=== PATIENT | male | born 1930 | race Caucasian/White ===

== ENCOUNTER 2017-05-24 07:21 | Observation (INO) ==
[2017-05-24] MEDS ORDERED: 0.9 % SODIUM CHLORIDE 1,000 ML IV ONE ×2 (07:41→09:10)
--- NOTE | 2017-05-24 07:54 | Emergency Department Note ---
Weakness HPI - General Chief complaint: Blood Pressure Problem Stated complaint: weakness, low bp Time Seen by Provider: 05/24/17 07:48 Source: patient, EMS Mode of arrival: EMS - History of Present Illness HPI Narrative: 86-year-old male who was at home trying to go to the bathroom using his walker when he had a weakness episode and legs collapsed and does not remember what happened said 2 previous weakness episodes in the past 2 weeks was diagnosed with a UTI on 05/21/2017 put on Macrobid at that time. He had a head CT and workup which were all negative. inventory specialist arrived his blood pressure was in the 80s and when they bolused him with fluids it has returned up to 110 systolically. Is alert and oriented in no acute distress he has no pain as had the episode of weakness that occurred. Appears to have normal muscular strength in the upper and lower extremities he is alert and cooperative and oriented. Lives at home with an elderly sister. Son is here at this time he has a DNR with comfort measures only ,antibiotics okayed. the four episodes there were no syncopy involved according to daughter. He just had the weakness. after the fluid bolus his bp is holding at 130's. He denies anyu s/sx, no chest pain or sob. he is alert and oriented with no neurologic abnormalities - Related Data Home Medications Medication Instructions Recorded Confirmed amlodipine 5 mg tablet 5 mg PO QDAY 10/30/16 12/02/16 pravastatin 40 mg tablet 40 mg PO QHS 10/30/16 12/02/16 psyllium husk PO QDAY 10/30/16 12/02/16 aspirin 81 mg tablet,delayed 81 mg PO QDAY 12/02/16 12/02/16 release cholecalciferol (vitamin D3) 5,000 10,000 unit PO QDAY 12/02/16 12/02/16 unit capsule glucosamine sulfate 500 mg tablet 500 mg PO BID 12/02/16 12/02/16 omega-3 fatty acids 1,000 mg 1,000 mg PO QDAY 12/02/16 12/02/16 capsule vitamin A-vitamin C-vit E-min 1 tab-cap PO QDAY 12/02/16 12/02/16 tablet Previous Rx's Medication Instructions Recorded zolpidem 5 mg tablet 5 mg PO HS PRN #30 tab 12/02/16 Nitrofurantoin Monohyd/M-Cryst 100 mg PO BID #14 cap 05/21/17 [Macrobid 100 mg Capsule] Allergies Allergy/AdvReac Type Severity Reaction Status Date / Time atorvastatin [From Lipitor] AdvReac Unknown myalgia Verified 05/24/17 07:27 Review of Systems All systems ED: reviewed and negative except as stated. Constitutional: Denies: fever, chills Eyes: Denies: eye pain ENT ED: Denies: ear pain Cardiovascular: Denies: chest pain Respiratory: Denies: cough Gastrointestinal: Denies: abdominal pain Genitourinary: Denies: dysuria, frequency, urgency Musculoskeletal: Denies: back pain Integumentary: Denies: rash Neurological: Reports: weakness. Denies: headache, numbness, paresthesias, confusion, abnormal gait Psychiatric: Reports: anxiety Endocrine: Reports: fatigue Hematological/Lymphatic: Reports: easy bleeding Allergic/Immunologic: Reports: facial swelling Past Medical History - Past Medical History Medical history: Reports: arthritis, cancer (Renal), hyperlipidemia, hypertension, kidney stones, renal disease, other (Sciatica, BPH, peripheral vascular disease, macular degeneration, peptic ulcer disease) Surgical history ED: Reports: orthopedic, other (Ankle), other (Left nephrectomy , aortic aneurysm) Family history: Reports: CAD/[place] (father), hypertension (mother father) - Social History smoking status: Former smoker Alcohol use: Reports: None Drug use: Reports: none Physical Exam Limitations: no limitations General appearance: alert Head: atraumatic Eye: Present: normal appearance, PERRL ENT: normal exam, normal oropharynx, mucous membranes dry Neck: Present: normal inspection, full ROM, trachea midline Chest: Present: normal inspection, symmetric chest wall rise. Absent: tenderness Respiratory: Present: normal lung sounds bilaterally. Absent: respiratory distress Cardiovascular: Present: regular rate, normal rhythm Abdominal: Present: soft, normal bowel sounds. Absent: distention, tenderness, guarding, rebound, rigidity Extremities: Present: normal inspection, full ROM. Absent: tenderness Back: Present: normal inspection, full ROM. Absent: tenderness Patient oriented to: Present: person, place, time Speech: Present: fluid speech Cranial nerves: EOM function (II, III, IV, ): Normal, facial sensation (V): Normal, facial palsy (VII): Normal, gag reflex (IX): Normal, spinal accessory function (XI): Normal, tongue deviation (XII): Normal Cerebellar function: heel to andres: Normal Cerebellar function: normal gait Motor strength - LUE: 5/5 Motor strength - RUE: 5/5 Motor strength - LLE: 5/5 Upper motor neuron exam: Babinski sign: Absent bilaterally Sensory exam upper extremity: Normal: light touch Sensory exam lower extremity: Normal: light touch DTR: 2+: patellar (L), patellar (R) Coma Scale Eye Opening: Spontaneous Coma Scale Motor Response: Obeys Commands Coma Scale Verbal Response: Oriented Coma Scale Total: 15 Psychiatric: Present: normal affect Skin: Present: warm, dry Course Vital Signs Temperature 97.0 F 05/24/17 07:23 Pulse Rate 77 05/24/17 07:23 Respiratory Rate 16 05/24/17 07:23 Blood Pressure 114/68 05/24/17 07:23 Pulse Oximetry (%) 95 05/24/17 07:23 Temperature 97.0 F 05/24/17 07:23 Pulse Rate 77 05/24/17 07:23 Respiratory Rate 16 05/24/17 07:23 Blood Pressure 114/68 05/24/17 07:23 Pulse Oximetry (%) 95 05/24/17 07:23 Weakness - MDM Narrative Medical decision making narrative: pt transferred to care of Dr Camacho at 0900. awaiting lab results - Lab Data Result diagrams: 05/24/17 07:58 05/24/17 07:58 Lab Results 05/24/17 05/24/17 Range/Units 07:58 07:58 WBC 5.4 (4.5-11.0) K/mcL RBC 4.48 L (4.50-5.90) M/mcL Hgb 13.9 (13.5-16.5) g/dL Hct 41.8 (41.0-55.0) % MCV 93.2 (80.0-100.0) fL MCH 31.0 (26.0-34.0) pg MCHC 33.2 (31.0-36.0) g/dL RDW 14.3 (11.5-14.5) % Plt Count 225 (140-440) K/mcL MPV 8.0 (7.4-10.4) fL Band Neutrophils % Not Reportable VBG Lactic Acid 1.4 (0.5-2.2) mmol/L Disposition Pt seen by MACHINE FINISHER/PA only: No Referrals: Efren Sim DO [Primary Care Provider] -
--- NOTE | 2017-05-24 08:37 | XRay Report ---
HISTORY: Reason for Exam:Low O2 sat, usually does not wear oxygen FINDINGS: There is a small ill-defined alveolar opacity laterally at the left lung base. The appearance has changed compared to the prior exams. The remainder of the lung scott are clear. The heart size and pulmonary vasculature are normal. Patient has an azygos lobe. There are few old healed bilateral rib fractures. Severe degenerative changes are present in both shoulders. IMPRESSION: Possible small infiltrate laterally at the left lower lobe, superimposed upon underlying scar Interpreted and Authenticated by: Pablo Meraz 05/24/17
[2017-05-24 08:55] LABS: Mean Cell Volume 93.2 fL (80.0-100.0); Mean Corpuscular HGB Conc 33.2 g/dL (31.0-36.0); Platelet Count 225 K/mcL (140-440); RBC 4.48 M/mcL (4.50-5.90); Red Cell Distribution Width 14.3 % (11.5-14.5)
[2017-05-24 09:21] LABS: Creatine Kinase MB 5.1 ng/ml (0-4.9); Myoglobin 234 ng/ml (28-72); proBNP < 50.0 pg/ml (0-450)
[2017-05-24 09:22] LABS: ALT/SGPT 20 U/l (0-40); Albumin 3.8 gm/dL (3.2-5.2); Albumin/Globulin Ratio 1.3 (1.0-2.3); Alkaline Phosphatase 41 U/L (39-117); Blood Urea Nitrogen 19 mg/dl (8-23); Creatine Kinase 95 IU/L (24-195)
[2017-05-24 10:07] LABS: Lymphocytes % 20 % (15-49); Monocytes % (Manual) 7 % (1-12); Platelet Estimate NORMAL (NORMAL); RBC Morphology NORMAL (NORMAL); Segmented Neutrophils % 72 % (38-78)
[2017-05-24 10:57] LABS: Appearance,Urine CLEAR; Bacteria,Urine 0 /hpf (0); Bilirubin,Urine NEG (NEG); Color,Urine YELLOW; Glucose,Urine (UA) NEGATIVE (NEG); Leukocyte Esterase,Urine NEG /uL (NEG); Mucus,Urine FEW /hpf (0); Nitrate,Urine NEG (NEG); Protein,Urine NEG (NEG); Urine Blood NEG mg/dL (<0.03); Urine RBC 0 /hpf (0-1); Urine Squamous Epithelial Cell 0 /hpf (0-4); Urine WBC < 1 /hpf (0-4); Urobilinogen,Urine NEG (NEG)
[2017-05-24] MEDS ORDERED: AZITHROMYCIN 500 MG in DEXTROSE 5% IN WATER 250 ML IV ONE (11:51)
[2017-05-24] MEDS ORDERED: cefTRIAXone 1 GM VIAL IV ONE (11:51)
--- NOTE | 2017-05-24 11:53 | Emergency Department Note ---
General Adult HPI - General Chief complaint: Blood Pressure Problem Stated complaint: weakness, low bp Time Seen by Provider: 05/24/17 07:48 Source: patient, EMS Mode of arrival: EMS Limitations: no limitations - Related Data Home Medications Medication Instructions Recorded Confirmed amlodipine 5 mg tablet 5 mg PO QDAY 10/30/16 12/02/16 pravastatin 40 mg tablet 40 mg PO QHS 10/30/16 12/02/16 psyllium husk PO QDAY 10/30/16 12/02/16 aspirin 81 mg tablet,delayed 81 mg PO QDAY 12/02/16 12/02/16 release cholecalciferol (vitamin D3) 5,000 10,000 unit PO QDAY 12/02/16 12/02/16 unit capsule glucosamine sulfate 500 mg tablet 500 mg PO BID 12/02/16 12/02/16 omega-3 fatty acids 1,000 mg 1,000 mg PO QDAY 12/02/16 12/02/16 capsule vitamin A-vitamin C-vit E-min 1 tab-cap PO QDAY 12/02/16 12/02/16 tablet Previous Rx's Medication Instructions Recorded zolpidem 5 mg tablet 5 mg PO HS PRN #30 tab 12/02/16 Nitrofurantoin Monohyd/M-Cryst 100 mg PO BID #14 cap 05/21/17 [Macrobid 100 mg Capsule] Allergies Allergy/AdvReac Type Severity Reaction Status Date / Time atorvastatin [From Lipitor] AdvReac Unknown myalgia Verified 05/24/17 07:27 Review of Systems Constitutional: Denies: fever, chills Eyes: Denies: eye pain ENT ED: Denies: ear pain Cardiovascular: Denies: chest pain Respiratory: Denies: cough Gastrointestinal: Denies: abdominal pain Genitourinary: Denies: dysuria, frequency, urgency Musculoskeletal: Denies: back pain Integumentary: Denies: rash Neurological: Reports: weakness. Denies: headache, numbness, paresthesias, confusion, abnormal gait Psychiatric: Reports: anxiety Endocrine: Reports: fatigue Hematological/Lymphatic: Reports: easy bleeding Allergic/Immunologic: Reports: facial swelling Past Medical History - Past Medical History Medical history: Reports: arthritis, cancer (Renal), hyperlipidemia, hypertension, kidney stones, renal disease, other (Sciatica, BPH, peripheral vascular disease, macular degeneration, peptic ulcer disease) Surgical history ED: Reports: orthopedic, other (Ankle), other (Left nephrectomy , aortic aneurysm) - Social History smoking status: Former smoker Alcohol use: Reports: None Drug use: Reports: none Physical Exam Limitations: no limitations General appearance: alert Course Vital Signs Temperature 97.0 F 05/24/17 07:23 Pulse Rate 77 05/24/17 07:23 Respiratory Rate 16 05/24/17 07:23 Blood Pressure 114/68 05/24/17 07:23 Pulse Oximetry (%) 95 05/24/17 07:23 Temperature 97.0 F 05/24/17 07:23 Pulse Rate 82 05/24/17 11:10 Respiratory Rate 14 05/24/17 11:10 Blood Pressure 145/81 05/24/17 09:45 Pulse Oximetry (%) 98 05/24/17 11:10 Medical Decision Making - [facility] Narrative Medical decision making narrative: This patient has generalized weakness has been falling recently and has a new infiltrate in his lung. He will be admitted for pneumonia. - Lab Data Lab results reviewed: Yes I reviewed the patient's lab results. Result diagrams: 05/24/17 07:58 05/24/17 07:58 Lab Results 05/24/17 05/24/17 05/24/17 Range/Units 07:58 07:58 07:58 WBC 5.4 (4.5-11.0) K/mcL RBC 4.48 L (4.50-5.90) M/mcL Hgb 13.9 (13.5-16.5) g/dL Hct 41.8 (41.0-55.0) % MCV 93.2 (80.0-100.0) fL MCH 31.0 (26.0-34.0) pg MCHC 33.2 (31.0-36.0) g/dL RDW 14.3 (11.5-14.5) % Plt Count 225 (140-440) K/mcL MPV 8.0 (7.4-10.4) fL Total Counted 100 Seg Neutrophils % 72 (38-78) % Band Neutrophils % Not Reportable Lymphocytes % 20 (15-49) % Monocytes % (Manual) 7 (1-12) % Reactive Lymphocytes 1 (0-2) % Platelet Estimate Normal (NORMAL) RBC Morphology Normal (NORMAL) VBG Lactic Acid 1.4 (0.5-2.2) mmol/L Sodium 139 (133-145) mmol/L Potassium 4.5 (3.3-5.1) mmol/L Chloride 103 (96-108) mmol/L Carbon Dioxide 23 (22-30) mmol/L Anion Gap 13.0 (8-16) BUN 19 (8-23) mg/dl Creatinine 1.2 (0.7-1.2) mg/dl GFR Calculation 54 Glucose 121 H (70-105) mg/dL Calcium 8.6 (8.6-10.4) mg/dl Total Bilirubin 0.3 (0.0-1.0) mg/dL AST 22 (0-37) U/l ALT 20 (0-40) U/l Alkaline Phosphatase 41 (39-117) U/L Total Creatine Kinase 95 (24-195) IU/L CK-MB (CK-2) 5.1 H (0-4.9) ng/ml Myoglobin 234 H (28-72) ng/ml Troponin T (0-0.03) ng/ml NT-Pro-B Natriuret Pep < 50.0 (0-450) pg/ml Total Protein 6.7 (5.9-8.4) gm/dL Albumin 3.8 (3.2-5.2) gm/dL Globulin 2.9 (2.2-3.7) gm/dL Albumin/Globulin Ratio 1.3 (1.0-2.3) Urine Color Urine Appearance Urine pH (5.0-9.0) Ur Specific [place] (1.000-1.035) Urine Protein (NEG) mg/dL Urine Glucose (UA) (NEG) mg/dL Urine Ketones (NEG) mg/dL Urine Occult Blood (<0.03) mg/dL Urine Nitrate (NEG) Urine Bilirubin (NEG) mg/dL Urine Urobilinogen (NEG) mg/dL Ur Leukocyte Esterase (NEG) /uL Urine RBC (0-1) /hpf Urine WBC (0-4) /hpf Ur Squamous Epith Cells (0-4) /hpf Urine Bacteria (0) /hpf Urine Mucus (0) /hpf Ur Culture Indicated? 05/24/17 05/24/17 Range/Units 07:58 10:07 WBC (4.5-11.0) K/mcL RBC (4.50-5.90) M/mcL Hgb (13.5-16.5) g/dL Hct (41.0-55.0) % MCV (80.0-100.0) fL MCH (26.0-34.0) pg MCHC (31.0-36.0) g/dL RDW (11.5-14.5) % Plt Count (140-440) K/mcL MPV (7.4-10.4) fL Total Counted Seg Neutrophils % (38-78) % Band Neutrophils % Lymphocytes % (15-49) % Monocytes % (Manual) (1-12) % Reactive Lymphocytes (0-2) % Platelet Estimate (NORMAL) RBC Morphology (NORMAL) VBG Lactic Acid (0.5-2.2) mmol/L Sodium (133-145) mmol/L Potassium (3.3-5.1) mmol/L Chloride (96-108) mmol/L Carbon Dioxide (22-30) mmol/L Anion Gap (8-16) BUN (8-23) mg/dl Creatinine (0.7-1.2) mg/dl GFR Calculation Glucose (70-105) mg/dL Calcium (8.6-10.4) mg/dl Total Bilirubin (0.0-1.0) mg/dL AST (0-37) U/l ALT (0-40) U/l Alkaline Phosphatase (39-117) U/L Total Creatine Kinase (24-195) IU/L CK-MB (CK-2) (0-4.9) ng/ml Myoglobin (28-72) ng/ml Troponin T < 0.01 (0-0.03) ng/ml NT-Pro-B Natriuret Pep (0-450) pg/ml Total Protein (5.9-8.4) gm/dL Albumin (3.2-5.2) gm/dL Globulin (2.2-3.7) gm/dL Albumin/Globulin Ratio (1.0-2.3) Urine Color Yellow Urine Appearance Clear Urine pH 6.0 (5.0-9.0) Ur Specific [place] 1.010 (1.000-1.035) Urine Protein Neg (NEG) mg/dL Urine Glucose (UA) Negative (NEG) mg/dL Urine Ketones Neg (NEG) mg/dL Urine Occult Blood Neg (<0.03) mg/dL Urine Nitrate Neg (NEG) Urine Bilirubin Neg (NEG) mg/dL Urine Urobilinogen Neg (NEG) mg/dL Ur Leukocyte Esterase Neg (NEG) /uL Urine RBC 0 (0-1) /hpf Urine WBC < 1 (0-4) /hpf Ur Squamous Epith Cells 0 (0-4) /hpf Urine Bacteria 0 (0) /hpf Urine Mucus Few (0) /hpf Ur Culture Indicated? No - Radiology Data Radiology results reviewed: Yes I reviewed the patient's radiology results. Disposition Pt seen by FRAME OPENER/PA only: No Clinical Impression: Pneumonia Disposition: Xfer As Outpt/Obs ([facility]) Condition: Fair Referrals: Efren Sim DO [Primary Care Provider] - Time of Disposition: 11:52
[2017-05-24] MEDS ORDERED: DEXAMETHASONE 10 MG/ML VIAL IJ ONE (12:52)
[2017-05-24] MEDS ORDERED: BUPIVACAINE PF 0.25% 10 ML VIAL IJ ONE (12:52)
[2017-05-24] MEDS ORDERED: TRIAMCINOLONE ACETONIDE 40 MG/ML VIAL INTRAARTIC ONE (12:52)
--- NOTE | 2017-05-24 13:06 | Internal Med History&Physical ---
Medical - H&P: HPI Patient information: Note initiated : 05/24/17 at 1:06 pm Service Date, if different from initiated Date: [] Patient: Antonio Chaves 86 y/o M admitted on 05/24/17 for weakness, low bp. Chief Complaint: [] History of present illness: Mr. Chaves is a 86 year old man who was in his normal state of health until May 21, when he just was not feeling well and felt weak and nearly collapsed while bowling. Came to the emergency room and was diagnosed with a urinary tract infection. He was given a prescription for Macrobid. Since then he is really not bounced back, and is just been feeling very weak, and has had several falls. He says he just feels like his legs suddenly while at work and they just buckle and he falls down. He does not seem to have any control over his legs. He initially denied that this had ever happened in the past, and then later said that he had a similar episode back in June of this year. He had a UTI at that time as well, and his symptoms resolved after that was treated. He denies any back pain or leg pain, although says at this time his left hip is quite sore from 1 of his recent falls. 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 ER evaluation showed normal white blood cell count, normal urinalysis, and generally normal labs. Chest x-ray was suggestive of possible early left lower lobe infiltrate. The patient is too weak to return home, so was admitted to observation. Otherwise, he denies recent fever chills, headaches or dizziness, new eye or ear symptoms, swollen glands, chest pain or palpitations, shortness of breath or cough, abdominal pain, nausea or vomiting, diarrhea or constipation. He says he has mild urinary frequency but attributes that to drinking lots of fluids. He also has nocturia 1-2 times a night. 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 Moe Medication List amlodipine 5 mg PO QDAY aspirin (Adult Low Dose Aspirin) 81 mg he only takes this about once every 3 days, because of excessive bleeding. cholecalciferol (vitamin D3) 10,000 units PO QDAY glucosamine sulfate (Glucosamine) 500 mg PO BID omega-3 fatty acids (Fish Oil Concentrate) 1,000 mg PO QDAY pravastatin 40 mg PO QHS psyllium husk (Metamucil) PO QDAY vitamin A-vitamin C-vit E-min tablet 1 tab-cap PO QDAY Nitrofurantoin 100 mg p.o. twice daily Zolpidem 5 mg nightly as needed. He says he takes this only rarely. He is also on an [id number] sleep medicine, does not know the name. Allergies/Adverse Reactions atorvastatin [From Lipitor] Adverse Reaction -myalgia Family History Father , at age 72,CAD (coronary artery disease),Hypertension, essential,Alcoholic liver disease Mother , at age 75 Asthma,Lung disease,Hypertension, essential Social history:Lives with daughter, he eats 2 meals per day, he makes breakfast , she makes dinner. Previous smoker, quit smoking at age 29. No alcohol use. 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 He initially said he wanted to have a no CODE STATUS, but when we explained that meant no CPR, he change that to full code. He does not want long-term life support. He says his daughter, Aline, will act as his POA. Medical - H&P: Meds Home Medications Medication Instructions Recorded Confirmed Type amlodipine 5 mg tablet 5 mg PO QDAY 10/30/16 05/24/17 History pravastatin 40 mg tablet 40 mg PO QHS 10/30/16 05/24/17 History psyllium husk PO QDAY 10/30/16 12/02/16 History aspirin 81 mg tablet,delayed 81 mg PO 3XW 12/02/16 05/24/17 History release cholecalciferol (vitamin D3) 5,000 10,000 unit PO QDAY 12/02/16 05/24/17 History unit capsule glucosamine sulfate 500 mg tablet 500 mg PO DAILY 12/02/16 05/24/17 History omega-3 fatty acids 1,000 mg 1,000 mg PO QDAY 12/02/16 05/24/17 History capsule vitamin A-vitamin C-vit E-min 1 tab-cap PO QDAY 12/02/16 05/24/17 History tablet zolpidem 5 mg tablet 5 mg PO HS PRN #30 tab 12/02/16 05/24/17 Rx Nitrofurantoin Monohyd/M-Cryst 100 mg PO BID #14 cap 05/21/17 05/24/17 Rx [Macrobid 100 mg Capsule] Allergies Allergy/AdvReac Type Severity Reaction Status Date / Time atorvastatin [From Lipitor] AdvReac Intermediate myalgia Verified 05/24/17 15:07 Medical - H&P: Exam - Constitutional Vitals: Temp Pulse Resp BP Pulse Ox 97.0 F 87 14 145/81 99 05/24/17 07:23 05/24/17 12:44 05/24/17 11:10 05/24/17 09:45 05/24/17 12:44 Respiratory rate ranging from 15-23, heart rate ranges from 92-101, O2 saturation 95% on 3 L nasal cannula and then 100% on 1 L. On exam, he is a well-developed well-nourished elderly man in no acute distress. Head: Normocephalic, atraumatic. He denies recent head trauma. Eyes: PERRLA, EOMI, anicteric. Ears: TMs and canals are fairly clear. Pharynx: Mucosa appears normal. Posterior pharynx is clear. He has a full upper and partial lower plate. Neck is supple without obvious lymphadenopathy, JVD, thyromegaly, bruits. [place] exam: Shows regular rate and rhythm with normal S1 and S2, without murmurs, rubs, gallops. [place] lungs: Are clear to auscultation, without obvious rales, rhonchi, wheezes. Abdomen: Is soft and nontender with no obvious masses. Bowel sounds are normoactive. Extremities: He has a chronically deformed and slightly puffy right foot and ankle from previous injury. There is a trace pitting edema at the ankles. Neurologic: The patient is alert and oriented, calm and cooperative. On motor exam, he can lift the right leg and hold it up without too much trouble. He can lift the left leg, but not fully straighten it, and cannot hold it up for more than about 5 seconds. He says it feels both weak and uncomfortable. He seems to have a slight tremor in that left leg and foot as well. Medical - H&P: Reslt - Labs CBC & Chem 7: 05/24/17 07:58 05/24/17 07:58 Labs: Short CBC 05/24/17 Range/Units 07:58 WBC 5.4 (4.5-11.0) K/mcL Hgb 13.9 (13.5-16.5) g/dL Hct 41.8 (41.0-55.0) % Plt Count 225 (140-440) K/mcL BMP 05/24/17 07:58 Sodium 139 Potassium 4.5 Chloride 103 Carbon Dioxide 23 BUN 19 Creatinine 1.2 Glucose 121 H Calcium 8.6 Cardiac Enzymes 05/24/17 05/24/17 Range/Units 07:58 07:58 Total Creatine Kinase 95 (24-195) IU/L CK-MB (CK-2) 5.1 H (0-4.9) ng/ml Troponin T < 0.01 (0-0.03) ng/ml Liver Function 05/24/17 Range/Units 07:58 Total Bilirubin 0.3 (0.0-1.0) mg/dL AST 22 (0-37) U/l ALT 20 (0-40) U/l Alkaline Phosphatase 41 (39-117) U/L Albumin 3.8 (3.2-5.2) gm/dL Urine 05/24/17 Range/Units 10:07 Urine Color Yellow Urine Appearance Clear Urine pH 6.0 (5.0-9.0) Ur Specific [place] 1.010 (1.000-1.035) Urine Protein Neg (NEG) mg/dL Urine Glucose (UA) Negative (NEG) mg/dL May 24: Lactic acid is normal at 1.4 Troponin is normal at less than 0.01 ProBNP is normal at less than 50 EKG shows sinus rhythm with a rate of about 90. Very low voltage throughout. Next ABG: On room air I believe: PH 7.39, PCO2 45, PO2 80, bicarb 27, O2 saturation 96% Head CT: Stable, age-related degenerative ischemic changes. Next Chest x-ray: FINDINGS: There is a small ill-defined alveolar opacity laterally at the left lung base. The appearance has changed compared to the prior exams. The remainder of the lung scott are clear. Patient has an azygos lobe. There are few old healed bilateral rib fractures. Severe degenerative changes are present in both shoulders. 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 No pelvic or hip fracture CT of lumbar spine: IMPRESSION: Severe arthritis in the facets at multiple levels causing spinal canal stenosis at L2-3 L3-4 and L4-5 with the greatest narrowing at the L3-4 level. Moderate to severe arthritis and central canal stenosis is noted at several levels. Stenosis of neural foramina bilaterally at multiple levels due to spurs and posterior lateral bulges. No acute fracture and no evidence of metastasis. Aortic endograft noted extending into the iliac arteries. Left nephrectomy noted. No lytic or bone lesions. Medical - H&P: A/P (1) Weakness generalized Current visit: Yes Status: Acute (2) Status post fall Current visit: Yes Status: Acute (3) Left lower lobe pneumonia Current visit: Yes Status: Acute (4) History of UTI Current visit: Yes Status: Chronic (5) Peripheral vascular disease Current visit: No Status: Chronic (6) Insomnia Current visit: No Status: Chronic (7) Vitamin D deficiency Current visit: No Status: Chronic (8) Chronic kidney disease, stage 2 (mild) Current visit: No Status: Chronic (9) Hypertension, essential Current visit: No Status: Chronic - Narrative A/P Narrative: #1. Infectious disease. Patient presents with ongoing weakness. Chest x-ray today suggest possible new left lower lobe infiltrate consistent with possible community-acquired pneumonia. -Admit for further observation and workup. -Empiric antibiotic coverage with Rocephin and Zithromax. -Check follow-up troponin, d-dimer. -Albuterol nebs, oxygen, pulmonary toilet as needed. -Check follow-up chest x-ray in the morning. Recent history of UTI. Status post treatment with Macrobid. UA looks okay today. 2. Cardiovascular. History of peripheral vascular disease and hypertension. 3. History of glucose intolerance. Accu-Cheks and sliding scale insulin. 4. CODE STATUS: Full code. His daughter, Aline, will act as his POA. 5. DVT prophylaxis: Subcu heparin. 6. Weakness. Because of unexplained lower extremity symptoms, CT of the pelvis and lumbar spine was ordered this evening. This shows moderate to moderately severe central canal stenosis at several levels, including extensive arthritis and facet arthropathy. -PT and OT evaluations. -Orthopedic consult, to see if there are any treatments that could be offered, and if they feel that his current symptoms are in any way related to the spine findings. -Case management consult. Denies visit took approximately 60 minutes, to review the patient's case with the ER MD, review his records and test results, interview and examine him, and write orders .
--- NOTE | 2017-05-24 13:34 | Cat Scan Report ---
History: Weakness and hypotension Findings: The brain was imaged without contrast at 2.5 mm intervals. A menstrual atrophy is present. There are patchy areas of decreased attenuation in the white matter in the frontal and parietal lobes bilaterally. Is no evidence of an infarct, hemorrhage or mass effect. The bone windows show no skull lesion. There has been no significant change since 05/21/17. Impression: Stable age-related degenerative/ischemic changes. No acute abnormality The ER was called with results Interpreted and Authenticated by: Pablo Meraz 05/24/17
[2017-05-24] MEDS ORDERED: ALBUTEROL SULFATE 2.5 MG/3 ML NEBULIZER NEB PRN (19:55)
[2017-05-24] MEDS ORDERED: DEXTROSE 50% 50 ML VIAL IV PRN (19:56)
[2017-05-24] MEDS ORDERED: DEXTROSE 31 GM ORAL.SUSP PO PRN (19:56)
[2017-05-24] MEDS ORDERED: DOCUSATE SODIUM 100 MG CAPSULE PO PRN (19:58)
[2017-05-24] MEDS ORDERED: ONDANSETRON 4 MG/2 ML VIAL IV PRN (19:58)
[2017-05-24] MEDS ORDERED: ACETAMINOPHEN 325 MG TABLET PO PRN (19:58)
[2017-05-24] MEDS ORDERED: MAGNESIUM HYDROXIDE 30 ML ORAL.SUSP PO PRN (19:58)
[2017-05-24] MEDS ORDERED: NALOXONE HCL 0.4 MG/ML VIAL IV PRN (19:58)
[2017-05-24] MEDS ORDERED: HYDROcodone/APAP 5/325MG TABLET PO PRN (19:58)
[2017-05-24] MEDS ORDERED: CALCIUM CARBONATE 500 MG TAB.CHEW CHEWED PRN (19:58)
--- NOTE | 2017-05-24 20:19 | Cat Scan Report ---
CLINICAL INFORMATION:Reason for Exam:LE weakness, hx renal ca , chronic back pain FINDINGS: Spine was imaged without contrast. Sagittal and coronal reformats were created. There is an old ununited fracture off the tip of the spinous process of L4. Measures 7 x 8 mm. No recent fracture is present. The L5-S1 disc space is normal. Moderate arthritis is present in the left and mild arthritis in the right facet. This is not causing stenosis. L4-5 disc is normal in height but desiccated. There is 2 mm grade 1 spondylolisthesis due to severe arthritis in the facets. There is also hypertrophy of the ligamentum flavum. This is causing moderate spinal canal stenosis and moderate stenosis of both neural foramina. There is a small Schmorl's nodule in the inferior endplate of L4. L3-4 disc is mildly narrowed and degenerated. Moderate to severe arthritis is present in both facets. There is moderately severe central canal stenosis and there is also severe stenosis of the right moderate stenosis left side foramina. There are broad-based Schmorl's nodes in both superior and inferior endplates of L 3. Small Schmorl's nodes are also seen in the superior and inferior endplates of L2. L2-3 disc is moderately narrowed and degenerated. There is 2 mm grade 1 spondylolisthesis due to severe arthritis in both facets. There is a small broad-based bulge and moderate spinal canal stenosis. There is severe stenosis lateral recesses on each side and moderate stenosis of both neural foramina, left worse right. L1-2 disc is normal in height. There is mild arthritis in the facets. This is not causing significant stenosis. Patient has an endograft in the aorta extending into the iliac arteries. Left kidney is been removed and there are clips inferior to the renal fossa. No lytic or blastic bone metastasis are present. There is no evidence of a paraspinal soft tissue mass. IMPRESSION: Severe arthritis in the facets at multiple levels causing spinal canal stenosis at L2-3 L3-4 and L4-5 with the greatest narrowing at the L3-4 level Stenosis of neural foramina bilaterally at multiple levels due to spurs and posterior lateral bulges No acute fracture and no evidence of metastasis Interpreted and Authenticated by: Pablo Meraz 05/24/17
[2017-05-24] MEDS: ALBUTEROL SULFATE 2.5 MG/3 ML NEBULIZER NEB SCH (20:23)
--- NOTE | 2017-05-24 20:23 | Cat Scan Report ---
History: Recent fall with left hip pain and bilateral leg weakness Findings: The pelvis was imaged without contrast. Sagittal and coronal reformats were created. No pelvic or hip fracture present. There is no evidence of metastasis. Moderate osteoarthritis is present in both hips with joint space narrowing, small marginal spurs and subchondral cysts in the acetabula. There are also spurs along the margin of the greater trochanters. Arthritis is also seen at the symphysis pubis and mild arthritis is present in the SI joints bilaterally. Advanced arthritis is present in the facets in the lower lumbar spine. There is an endograft in the aorta and iliac arteries. The prostate is mildly enlarged. The urinary bladder is distended and has a smooth wall. Incidentally noted is a fat-containing left inguinal hernia. Impression: Moderate arthritis in both hips No pelvic or hip fracture Interpreted and Authenticated by: Pablo Meraz 05/24/17
[2017-05-24] MEDS: HEPARIN 5,000 UNIT/ML VIAL SQ SCH (21:15)
[2017-05-24] MEDS: SIMVASTATIN 20 MG TABLET PO SCH (21:15)
[2017-05-24] MEDS: 0.9 % SODIUM CHLORIDE 10 ML SYRINGE IV SCH (21:21)
[2017-05-24] MEDS: INSULIN LISPRO 1 UNIT/0.01 ML UNIT SQ SCH (21:21)
[2017-05-24] MEDS: ZOLPIDEM 5 MG TABLET PO PRN (22:33)
[2017-05-25 00:03] LABS: Hemoglobin A1C 5.8 % HGB (4.0-6.0)
[2017-05-25] MEDS: ALBUTEROL SULFATE 2.5 MG/3 ML NEBULIZER NEB SCH ×2 (04:00→11:46)
[2017-05-25 06:05] LABS: Basophils # (Auto) 0 K/mcL (0.0-0.3); Basophils % (Auto) 0.3 % (0.0-2.0); Eosinophils # (Auto) 0.1 K/mcL (0.0-0.7); Eosinophils % (Auto) 0.8 % (0.0-7.0); Granulocytes % (Auto) 65.3 % (38.0-78.0); Lymphocytes # (Auto) 1.9 K/mcL (1.5-4.8); Lymphocytes % (Auto) 23.6 % (15.5-49.0); Mean Corpuscular HGB Conc 33.2 g/dL (31.0-36.0); Mean Corpuscular Hemoglobin 31.2 pg (26.0-34.0); Monocytes # (Auto) 0.8 K/mcL (0.1-0.9); Platelet Count 205 K/mcL (140-440); RBC 4.11 M/mcL (4.50-5.90); Red Cell Distribution Width 13.9 % (11.5-14.5)
[2017-05-25] MEDS: 0.9 % SODIUM CHLORIDE 10 ML SYRINGE IV SCH ×3 (06:06→22:23)
[2017-05-25 06:39] LABS: ALT/SGPT 20 U/l (0-40); Albumin 3.8 gm/dL (3.2-5.2); Albumin/Globulin Ratio 1.6 (1.0-2.3); Alkaline Phosphatase 39 U/L (39-117); Bilirubin,Direct < 0.2 mg/dL (0.0-0.3); Blood Urea Nitrogen 16 mg/dl (8-23); Gamma Glutamyl Transpeptidase 14 U/L (8-61); Magnesium 2.1 mg/dL (1.6-2.5); Uric Acid 6.2 mg/dL (2.5-8.0)
[2017-05-25] MEDS: INSULIN LISPRO 1 UNIT/0.01 ML UNIT SQ SCH ×2 (07:40→15:36)
[2017-05-25] MEDS ORDERED: cefTRIAXone 1 GM VIAL IV SCH (09:00)
--- NOTE | 2017-05-25 09:30 | XRay Report ---
CLINICAL INFORMATION: Follow pneumonia COMPARISON: 05/24/2017 FINDINGS: Heart size, mediastinum and pulmonary vessels are normal for technique. There is minor scarring in the lingula region which is similar to a remote study of 08/14/2011. No definite acute infiltrate. IMPRESSION: Negative Interpreted and Authenticated by: Efren Short 05/25/17
[2017-05-25] MEDS: VITAMIN D3 5,000 UNIT CAPSULE PO SCH (09:32)
[2017-05-25] MEDS: ASPIRIN 81 MG TAB.CHEW PO SCH (09:32)
[2017-05-25] MEDS: amLODIPine 5 MG TABLET PO SCH (09:32)
[2017-05-25] MEDS: GLUCOSAMINE SULFATE 500 MG PO SCH (09:32)
[2017-05-25] MEDS: BETA CAROTENE VITS C E PO SCH (09:32)
[2017-05-25] MEDS: MINS PO SCH (09:32)
[2017-05-25] MEDS: HEPARIN 5,000 UNIT/ML VIAL SQ SCH ×2 (09:32→22:23)
[2017-05-25] MEDS: FISH OIL 1,000 MG CAPSULE PO SCH (09:32)
[2017-05-25] MEDS ORDERED: AZITHROMYCIN 500 MG in DEXTROSE 5% IN WATER 250 ML IV SCH (10:00)
--- NOTE | 2017-05-25 12:04 | Internal Med Progress Note ---
Medical - PN: Subj Patient information: Note initiated : 05/25/17 at 12:04 pm Service Date, if different from initiated Date: [] Patient: Antonio Chaves 86 y/o M admitted on 05/24/17 for Weakness, Low BP/ Pneumonia. Chief Complaint: [] Interval history: May 24, 2017: History of present illness: Mr. Chaves is a 86 year old man who was in his normal state of health until May 21, when he just was not feeling well and felt weak and nearly collapsed while bowling. Came to the emergency room and was diagnosed with a urinary tract infection. He was given a prescription for Macrobid. Since then he is really not bounced back, and is just been feeling very weak, and has had several falls. He says he just feels like his legs suddenly while at work and they just buckle and he falls down. He does not seem to have any control over his legs. He initially denied that this had ever happened in the past, and then later said that he had a similar episode back in June of this year. He had a UTI at that time as well, and his symptoms resolved after that was treated. He denies any back pain or leg pain, although says at this time his left hip is quite sore from 1 of his recent falls. 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 ER evaluation showed normal white blood cell count, normal urinalysis, and generally normal labs. Chest x-ray was suggestive of possible early left lower lobe infiltrate. The patient is too weak to return home, so was admitted to observation. Otherwise, he denies recent fever chills, headaches or dizziness, new eye or ear symptoms, swollen glands, chest pain or palpitations, shortness of breath or cough, abdominal pain, nausea or vomiting, diarrhea or constipation. He says he has mild urinary frequency but attributes that to drinking lots of fluids. He also has nocturia 1-2 times a night. May 25: Today, the patient notes he still cannot seem to reliably bear weight on his left leg. He denies significant pain in the left leg, but says when he tries to stand on it it seems to just give way, and reports that he just feels like he cannot control it. Sometimes it is a bit numb and tingling but other times not. He also feels like he has not been able to fully straighten out the left leg since he fell a couple of days ago. He also notes that his left hip is uncomfortable while lying in bed. Otherwise, he denies fever or chills, chest pain or shortness of breath, GI or complaints. - Constitutional Vitals: Vital Signs Temp Pulse Resp BP Pulse Ox 98.6 F 77 16 106/67 93 05/25/17 10:52 05/25/17 07:24 05/25/17 10:52 05/25/17 10:52 05/25/17 10:52 Period Temp Pulse Resp BP Sys/Raya Pulse Ox Last 24 Hr 97.7 F-98.7 F 77-100 16-20 106-154/61-85 93-100 Intake and Output 05/24/17 05/25/17 05/25/17 21:59 05:59 13:59 Intake Total 860 / 860 450 / 450 560 / 560 Output Total 1550 / 1550 950 / 950 Balance -690 / -690 -500 / -500 560 / 560 Weight 240 lb Intake & Output: Intake & Output 05/24/17 05/25/17 05/25/17 21:59 05:59 13:59 Intake Total 860 / 860 450 / 450 560 / 560 Output Total 1550 / 1550 950 / 950 Balance -690 / -690 -500 / -500 560 / 560 Weight 240 lb Intake: Oral 860 / 860 450 / 450 560 / 560 Output: Void Amount 1550 / 1550 950 / 950 Other: Meal Lunch Percent of Meal Consumed 100% Feeding Ability Independent On exam, he is an elderly man lying in bed in no acute distress. He has numerous family members in the room. Neck shows no obvious JVD or lymphadenopathy. Cardiac exam shows regular rate and rhythm. Lungs are clear to auscultation Abdomen is soft and nontender. Extremities: Does tend to hold his left hip and left knee in flexion, and complains that his knee feels too stiff to straighten out. He has good hip flexor strength on the right, but less so on the left. He does not seem to have pain to palpation of either the knee or the left hip. Medical - PN: Obj Da - Labs CBC & Chem 7: 05/25/17 04:14 05/25/17 04:14 Labs: Abnormal Lab Results 05/25/17 05/24/17 05/24/17 04:14 07:58 07:58 RBC 4.11 L 4.48 L Hgb 12.8 L Hct 38.6 L Glucose 121 H CK-MB (CK-2) 5.1 H Myoglobin 234 H May 24: Lactic acid is normal at 1.4 Troponin is normal at less than 0.01 ProBNP is normal at less than 50 EKG shows sinus rhythm with a rate of about 90. Very low voltage throughout. Next ABG: On room air I believe: PH 7.39, PCO2 45, PO2 80, bicarb 27, O2 saturation 96% Head CT: Stable, age-related degenerative ischemic changes. Next Chest x-ray: FINDINGS: There is a small ill-defined alveolar opacity laterally at the left lung base. The appearance has changed compared to the prior exams. The remainder of the lung scott are clear. Patient has an azygos lobe. There are few old healed bilateral rib fractures. Severe degenerative changes are present in both shoulders. 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 No pelvic or hip fracture CT of lumbar spine: IMPRESSION: Severe arthritis in the facets at multiple levels causing spinal canal stenosis at L2-3 L3-4 and L4-5 with the greatest narrowing at the L3-4 level. Moderate to severe arthritis and central canal stenosis is noted at several levels. Stenosis of neural foramina bilaterally at multiple levels due to spurs and posterior lateral bulges. No acute fracture and no evidence of metastasis. Aortic endograft noted extending into the iliac arteries. Left nephrectomy noted. No lytic or bone lesions. Meds: Medications Acetaminophen (Tylenol) 650 mg PO Q6HP PRN PRN Reason: PAIN/FEVER > 101 Hydrocodone Bitart/Acetaminophen ([place] 5/325mg) 1 tab PO Q4HP PRN PRN Reason: PAIN LEVEL 3-6 Last Admin: 05/24/17 23:05 Dose: 1 tab Albuterol Sulfate (Ventolin) 2.5 mg NEB Q2HP PRN PRN Reason: Shortness Of Breath Albuterol Sulfate (Ventolin) 2.5 mg NEB Q8H LYLA Last Admin: 05/25/17 11:46 Dose: 2.5 mg Amlodipine Besylate (Norvasc) 5 mg PO QDAY [facility] Last Admin: 05/25/17 09:32 Dose: 5 mg Aspirin (Aspirin) 81 mg PO [id number] [facility] Last Admin: 05/25/17 09:32 Dose: 81 mg Calcium Carbonate/Glycine (Tums) 1,000 mg CHEWED Q4HP PRN PRN Reason: Dyspepsia Ceftriaxone Sodium (Rocephin) 1 gm IV Q24H [facility] Last Admin: 05/25/17 09:32 Dose: 1 gm Dextrose (Dextrose 50%) 0 ml IV UD PRN PRN Reason: Hypoglycemia Diagnostic Test (Pha) (Accu-Chek) 1 each FS ACHS [facility] Last Admin: 05/25/17 07:40 Dose: 1 each Docusate Sodium (Colace) 100 mg PO BIDP PRN PRN Reason: Constipation Fish Oil (Fish Oil) 1,000 mg PO DAILY [facility] Last Admin: 05/25/17 09:32 Dose: 1,000 mg Glucose (Insta-Glucose) 15 gm PO PRN PRN PRN Reason: Hypoglycemia Heparin Sodium (Porcine) (Heparin) 5,000 unit SQ Q12 [facility] Last Admin: 05/25/17 09:32 Dose: 5,000 unit Azithromycin 500 mg/ Dextrose 250 mls @ 250 mls/hr IV Q24H [facility] Stop: 05/27/17 10:59 Last Admin: 05/25/17 10:15 Dose: 250 mls/hr Insulin Human Lispro (Humalog) 0 unit SQ ACHS [facility] PRN Reason: Protocol Last Admin: 05/25/17 07:40 Dose: Not Given Magnesium Hydroxide (Milk Of Magnesia) 30 ml PO DAILYP PRN PRN Reason: Constipation Morphine Sulfate (Morphine) 2 mg IV Q4HP PRN PRN Reason: PAIN LEVEL > 6 Last Admin: 05/25/17 00:20 Dose: 2 mg Naloxone HCl (Narcan) 0.1 mg IV Q2MIN PRN PRN Reason: Opiate Reversal Ondansetron HCl (Zofran) 4 mg IV Q6HP PRN PRN Reason: Nausea And Vomiting Beta-Carotene(A)- Vits C,E/Mins [ Vision Vitamins] 1 dose PO DAILY [facility] Last Admin: 05/25/17 09:32 Dose: Not Given Glucosamine Sulfate ([Cidatrine] 500 Mg) 1 dose PO DAILY [facility] Last Admin: 05/25/17 09:32 Dose: Not Given Simvastatin (Zocor) 20 mg PO HS [facility] Last Admin: 05/24/17 21:15 Dose: 20 mg Sodium Chloride (Saline Flush) 10 ml IV Q8 [facility] Last Admin: 05/25/17 06:06 Dose: 10 ml Vitamin D (Vitamin D3) 10,000 unit PO QDAY [facility] Last Admin: 05/25/17 09:32 Dose: 10,000 unit Zolpidem Tartrate (Ambien) 5 mg PO HSP PRN PRN Reason: sleep Last Admin: 05/24/17 22:33 Dose: 5 mg Medical - PN: A/P - Time Spent With Patient Total time spent is greater than 50% in coordination of care (as documented) at patient's floor/unit and/or counseling patient: 25 - 35 minutes (1) Weakness generalized Status: Acute Current Visit: Yes (2) Status post fall Status: Acute Current Visit: Yes (3) Left lower lobe pneumonia Status: Acute Current Visit: Yes (4) History of UTI Status: Chronic Current Visit: Yes (5) Peripheral vascular disease Status: Chronic Current Visit: No (6) Insomnia Status: Chronic Current Visit: No (7) Vitamin D deficiency Status: Chronic Current Visit: No (8) Chronic kidney disease, stage 2 (mild) Status: Chronic Current Visit: No (9) Hypertension, essential Status: Chronic Current Visit: No - Narrative A/P Narrative: #1. Infectious disease. Patient presents with ongoing weakness. Chest x-ray today suggest possible new left lower lobe infiltrate consistent with possible community-acquired pneumonia. -Patient remains afebrile. Blood cell count is normal. Chest x-ray today is read as no acute disease, so he may not in fact have pneumonia. He is currently being covered with Rocephin and Zithromax, for weakness possibly caused by early pneumonia.. -I will discontinue antibiotics today, and continue to monitor. -Albuterol nebs, oxygen, pulmonary toilet as needed. Recent history of UTI. Status post treatment with Macrobid. UA looks okay today. 2. Cardiovascular. History of peripheral vascular disease and hypertension. 3. History of glucose intolerance. Accu-Cheks and sliding scale insulin. 4. CODE STATUS: Full code. His daughter, Aline, will act as his POA. 5. DVT prophylaxis: Subcu heparin. 6. Weakness. Because of unexplained lower extremity symptoms, CT of the pelvis and lumbar spine was ordered this evening. This shows moderate to moderately severe central canal stenosis at several levels, including extensive arthritis and facet arthropathy. Today, he continues to have leg weakness and inability to reliably stand on his left leg. I was able to track down Dr. Fox of orthopedic surgery, and he suggested getting an MRI of the patient's lumbar spine to assess for spinal lesions that could explain his lower extremity symptoms. MRI has been ordered. -PT and OT evaluations. -Case management consult. Medical - PN: Qual - VTE Deep Vein Thrombosis/Pulmonary Embolism Present on Admission: No
--- NOTE | 2017-05-25 16:47 | XRay Report ---
CLINICAL INFORMATION: Trauma COMPARISON: None. FINDINGS: There is an old appearing ununited fracture through the superior lateral quadrant of the patella. No definite acute fracture. Severe degenerative changes noted in the medial compartment tibiofemoral joint and moderate degenerative change patellofemoral compartment. Mild periarticular soft tissue swelling noted IMPRESSION: Old appearing ununited fracture the superior lateral patella. No definite acute fracture Moderate patellofemoral and severe medial tibiofemoral degenerative change Interpreted and Authenticated by: Efren Short 05/25/17
[2017-05-25] MEDS: SIMVASTATIN 20 MG TABLET PO SCH (22:23)
[2017-05-25] MEDS: ZOLPIDEM 5 MG TABLET PO PRN (23:51)
[2017-05-26] MEDS: 0.9 % SODIUM CHLORIDE 10 ML SYRINGE IV SCH ×3 (05:03→20:03)
[2017-05-26 05:36] LABS: Basophils # (Auto) 0 K/mcL (0.0-0.3); Basophils % (Auto) 0.3 % (0.0-2.0); Eosinophils # (Auto) 0.1 K/mcL (0.0-0.7); Eosinophils % (Auto) 1.2 % (0.0-7.0); Granulocytes % (Auto) 75.9 % (38.0-78.0); Lymphocytes # (Auto) 1.2 K/mcL (1.5-4.8); Mean Cell Volume 93.2 fL (80.0-100.0); Mean Corpuscular HGB Conc 33.3 g/dL (31.0-36.0); Monocytes # (Auto) 0.9 K/mcL (0.1-0.9); Monocytes % (Auto) 9.6 % (1.0-12.0); Platelet Count 219 K/mcL (140-440); RBC 4.42 M/mcL (4.50-5.90); Red Cell Distribution Width 13.7 % (11.5-14.5)
[2017-05-26 06:46] LABS: ALT/SGPT 22 U/l (0-40); Albumin/Globulin Ratio 1.3 (1.0-2.3); Alkaline Phosphatase 44 U/L (39-117); Bilirubin,Direct < 0.2 mg/dL (0.0-0.3); Blood Urea Nitrogen 16 mg/dl (8-23); Gamma Glutamyl Transpeptidase 15 U/L (8-61); Magnesium 2.1 mg/dL (1.6-2.5); Uric Acid 6.1 mg/dL (2.5-8.0)
[2017-05-26] MEDS: VITAMIN D3 5,000 UNIT CAPSULE PO SCH (08:47)
[2017-05-26] MEDS: amLODIPine 5 MG TABLET PO SCH (08:48)
[2017-05-26] MEDS: GLUCOSAMINE SULFATE 500 MG PO SCH (08:48)
[2017-05-26] MEDS: MINS PO SCH (08:48)
[2017-05-26] MEDS: BETA CAROTENE VITS C E PO SCH (08:48)
[2017-05-26] MEDS: FISH OIL 1,000 MG CAPSULE PO SCH (08:48)
[2017-05-26] MEDS: HEPARIN 5,000 UNIT/ML VIAL SQ SCH ×2 (08:48→20:03)
--- NOTE | 2017-05-26 08:54 | Consultation ---
DATE OF CONSULTATION: 05/24/2017 IDENTIFICATION: This is an 86-year-old gentleman. CHIEF COMPLAINT: Left lower extremity weakness. HISTORY OF PRESENT ILLNESS: Patient presented to the hospital several days ago. His history is that of having sustained a fall. He had gone out to the [facility] to urinate and just while standing near his left leg seemed weak and he fell. He crawled into the house and was able to get up, and using a walker go over to the bathroom and finish using the bathroom, but then apparently his legs became weak and he fell a second time. He has had several episodes where he has fallen in the past but he indicates these have primarily been secondary to tripping. He presented to the Emergency Room with left lower extremity dysfunction which involves weakness and the leg feeling numb. His right lower extremity also had some degree of weakness. He has really been unable to walk in the hospital-it sounds as if he has been up for bathroom privileges with assist. He does report that his left leg feels better today. I was called by the hospitalist who was somewhat frustrated by lack of help managing the patient. She had contacted some of my orthopaedic partners who do not regularly do spine surgery and they stated that this was out of the scope of their practice. She got a hold of me yesterday and I did make it very clear that I am leaving town and would not be available for surgical intervention on this gentleman but that I would be happy to review an MRI scan. She had previously obtained a CT. PAST MEDICAL HISTORY: Noncontributory. He has generally been healthy. He denies significant cardiovascular complicating diagnoses, but did have what sounds like an aortic aneurysm which was treated surgically. He has been bowling 3 times a week and generally has been healthy. Please see the admission H and P for additional past medical and past surgical. FAMILY HISTORY: Noncontributory at age 86. REVIEW OF SYSTEMS: Balanced review of the 10-point review of systems has generally been negative and he has been in a generally good state of health. MEDICATIONS: Please see the medical record. PHYSICAL EXAMINATION: GENERAL: He is resting comfortably in bed, does not seem to be in pain whatsoever. He did report that his hip was hurting the previous night or two, but that is not the case presently and he has no pain with range of motion of his hip joints bilaterally. He does have some ankylosis, not normal motion. BACK/NEURO: His sensation is vaguely altered in his bilateral lower extremities. There is not one specific dermatome, ___ sensory loss. His left leg is propped up on a pillow, but he grossly is neurologically intact. His tibialis anterior and EHL are grossly 5/5. His quadriceps are functioning well. He is able to do a straight leg raise. He does have reflexes, although they are slightly diminished at the patella. It is difficult to elicit any gastroc reflexes. He has no pathologic reflexes. His MRI scan demonstrates a fairly severe central stenosis at L2-3, L3-4, and L4-5. Even though his central stenosis is quite significant, it is really essentially probably secondary to the lateral recess stenosis. He does not have any acute findings that I identified that would developed just in the last few days to explain his weakness. This is a chronic degenerative stenosis and has been going on for some extended period of time but certainly slowly getting worse. PLAN: I have discussed treatment options with this gentleman. I think it is not totally unreasonable to consider epidural steroid and I would recommend that we probably give this at least one trial. I think there is very little loss by trying this. He does not have any real focal weakness on exam. He should be up and being mobilized with physical therapy. We may require that he transfer to a [place] [facility] facility. I will be happy to see him in clinic upon my return. If his weakness is progressing and there is concern that he needs more acute surgical decompression, the patient would need to be transferred. GDD:jeanine Job ID: [id number] Doc ID: [id number] Baron Fox MD
--- NOTE | 2017-05-26 10:48 | Magnetic Resonance Report ---
CLINICAL INFORMATION: Low back pain with left leg radiculopathy history multiple falls COMPARISON: Lumbar spine CT from 05/24/2017 TECHNIQUE: Sagittal T1 FLAIR, STIR, fast spin echo T2, axial T2 weighted images were acquired. FINDINGS: Sagittal images show 3 mm L2 and 2 mm of L4 anterior subluxation due to degenerative facet disease which is unchanged. There are no osseous abnormalities. Conus medullaris ends at T12 and is homogeneous signal. Cauda equina roots are normal. Marked distention of urinary bladder is again noted. At L1-2, there is mild broad extrusion facet arthropathy resulting in mild central canal stenosis At L2-3, mild broad disc protrusion, grade 1 spondylolisthesis and facet arthropathy results in moderate central canal and mild bilateral lateral recess/IV foraminal narrowing. There may be mild impingement of the exiting L2 and descending L3 nerve roots. At L3-4, mild broad disc protrusion and moderate facet arthropathy results in moderate central canal and mild bilateral lateral recess/IV foraminal narrowing with slight impingement exiting L3 and the descending L4 nerve roots. At L4-5, mild broad disc protrusion facet arthropathy result in severe central canal and moderate bilateral lateral recess/IV foraminal narrowing with impingement of the exiting L4 and the descending L5 nerve roots. At L5-S1, there is minimal broad disc protrusion with mild facet arthropathy. IMPRESSION: Multilevel degenerative change as described Moderate distention of the urinary bladder on both today's lumbar MRI and the CT yesterday. Consider pre and post void volume measurements with ultrasound to determine post void residual and the presence of bladder outlet obstruction or neurogenic bladder Interpreted and Authenticated by: Efren Short 05/26/17
--- NOTE | 2017-05-26 17:15 | Internal Med Progress Note ---
Medical - PN: Subj Patient information: Note initiated : 05/26/17 at 5:13 pm Service Date, if different from initiated Date: [] Patient: Antonio Chaves 86 y/o M admitted on 05/24/17 for Weakness, Low BP/ Pneumonia. Chief Complaint: [] Interval history: May 24, 2017: History of present illness: Mr. Chaves is a 86 year old man who was in his normal state of health until May 21, when he just was not feeling well and felt weak and nearly collapsed while bowling. Came to the emergency room and was diagnosed with a urinary tract infection. He was given a prescription for Macrobid. Since then he is really not bounced back, and is just been feeling very weak, and has had several falls. He says he just feels like his legs suddenly while at work and they just buckle and he falls down. He does not seem to have any control over his legs. He initially denied that this had ever happened in the past, and then later said that he had a similar episode back in June of this year. He had a UTI at that time as well, and his symptoms resolved after that was treated. He denies any back pain or leg pain, although says at this time his left hip is quite sore from 1 of his recent falls. 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 ER evaluation showed normal white blood cell count, normal urinalysis, and generally normal labs. Chest x-ray was suggestive of possible early left lower lobe infiltrate. The patient is too weak to return home, so was admitted to observation. Otherwise, he denies recent fever chills, headaches or dizziness, new eye or ear symptoms, swollen glands, chest pain or palpitations, shortness of breath or cough, abdominal pain, nausea or vomiting, diarrhea or constipation. He says he has mild urinary frequency but attributes that to drinking lots of fluids. He also has nocturia 1-2 times a night. May 25: Today, the patient notes he still cannot seem to reliably bear weight on his left leg. He denies significant pain in the left leg, but says when he tries to stand on it it seems to just give way, and reports that he just feels like he cannot control it. Sometimes it is a bit numb and tingling but other times not. He also feels like he has not been able to fully straighten out the left leg since he fell a couple of days ago. He also notes that his left hip is uncomfortable while lying in bed. Otherwise, he denies fever or chills, chest pain or shortness of breath, GI or complaints. May 26 Patient seen exmined, no acute overnight events, still notes weakness in the left leg, but not much pain. his mri shows djd and possible nerve impingement, Dr Fox did see the patient today and we did not see an need for acute surgical intervention,. Plan for steroid injection and aggressive Physical therapy pts repeat X Ra does not show a pneumonia, likely old scar tissue, clinically does not have any e/o infection. no need for antibiotics Dr Pizarro from pain consulted, plan for steroid inj tomorrow MRI report noted possible neurogenic bladder or outlet obstruction and to monitor via bladder scan, Pt vd 350 and pvr was 62 Pertinent ROS: Denies headache, dizziness Denies chest pain, palpitations Denies cough or shortness of breath Denies abdominal pain, nausea or vomiting. - Constitutional Vitals: Vital Signs Temp Pulse Resp BP Pulse Ox 98.4 F 96 H 20 135/76 95 05/26/17 16:00 05/26/17 07:23 05/26/17 16:00 05/26/17 16:00 05/26/17 16:00 Period Temp Pulse Resp BP Sys/Raya Pulse Ox Last 24 Hr 97.5 F-98.4 F 93-100 12-22 135-164/65-81 94-97 Intake and Output 05/26/17 05/26/17 05/26/17 05:59 13:59 21:59 Intake Total 375 / 375 240 / 240 800 / 800 Output Total 800 / 800 650 / 650 Balance -425 / -425 -410 / -410 800 / 800 Intake & Output: Intake & Output 05/26/17 05/26/17 05/26/17 05:59 13:59 21:59 Intake Total 375 / 375 240 / 240 800 / 800 Output Total 800 / 800 650 / 650 Balance -425 / -425 -410 / -410 800 / 800 Intake: Oral 375 / 375 240 / 240 800 / 800 Output: Void Amount 800 / 800 650 / 650 Other: Meal Breakfast Percent of Meal Consumed 100% # Voids 1 1 # Bowel Movements 1 1 Exam: Constitutional; Afebrile, cooperative, alert, not in distress. Eyes- No icterus, , No periorbital swelling Ears- Ext ear normal, hearing normal to conversation. Neck- Midline trachea, supple Respiratory system: Air Entry equal on both sides, No crackles or wheezing, no rhonchi. CVS- Rate rhythm regular, S1,S2 heard, no gallop, no rub. Abdomen- Soft nontender abdomen, no organomegaly, no tenderness, no guarding or rigidity, [employer]- AOOx3, moving all extremities, no gross focal deficit noted. Medical - PN: Obj Da - Labs CBC & Chem 7: 05/26/17 04:40 05/26/17 04:40 Labs: Abnormal Lab Results 05/26/17 05/26/17 05/25/17 04:40 04:40 04:14 RBC 4.42 L 4.11 L Hgb 12.8 L Hct 38.6 L Lymph % (Auto) 13.0 L Lymph # (Auto) 1.2 L Glucose 106 H CK-MB (CK-2) Myoglobin 05/24/17 05/24/17 07:58 07:58 RBC 4.48 L Hgb Hct Lymph % (Auto) Lymph # (Auto) Glucose 121 H CK-MB (CK-2) 5.1 H Myoglobin 234 H Meds: Medications Acetaminophen (Tylenol) 650 mg PO Q6HP PRN PRN Reason: PAIN/FEVER > 101 Hydrocodone Bitart/Acetaminophen ([place] 5/325mg) 1 tab PO Q4HP PRN PRN Reason: PAIN LEVEL 3-6 Last Admin: 05/24/17 23:05 Dose: 1 tab Albuterol Sulfate (Ventolin) 2.5 mg NEB Q2HP PRN PRN Reason: Shortness Of Breath Amlodipine Besylate (Norvasc) 5 mg PO QDAY [facility] Last Admin: 05/26/17 08:48 Dose: 5 mg Aspirin (Aspirin) 81 mg PO MoWeFr@0900 [facility] Last Admin: 05/25/17 09:32 Dose: 81 mg Calcium Carbonate/Glycine (Tums) 1,000 mg CHEWED Q4HP PRN PRN Reason: Dyspepsia Dextrose (Dextrose 50%) 0 ml IV UD PRN PRN Reason: Hypoglycemia Docusate Sodium (Colace) 100 mg PO BIDP PRN PRN Reason: Constipation Fish Oil (Fish Oil) 1,000 mg PO DAILY [facility] Last Admin: 05/26/17 08:48 Dose: 1,000 mg Glucose (Insta-Glucose) 15 gm PO PRN PRN PRN Reason: Hypoglycemia Heparin Sodium (Porcine) (Heparin) 5,000 unit SQ Q12 [facility] Last Admin: 05/26/17 08:48 Dose: 5,000 unit Magnesium Hydroxide (Milk Of Magnesia) 30 ml PO DAILYP PRN PRN Reason: Constipation Last Admin: 05/26/17 05:04 Dose: 30 ml Morphine Sulfate (Morphine) 2 mg IV Q4HP PRN PRN Reason: PAIN LEVEL > 6 Last Admin: 05/25/17 00:20 Dose: 2 mg Naloxone HCl (Narcan) 0.1 mg IV Q2MIN PRN PRN Reason: Opiate Reversal Ondansetron HCl (Zofran) 4 mg IV Q6HP PRN PRN Reason: Nausea And Vomiting Beta-Carotene(A)- Vits C,E/Mins [ Vision Vitamins] 1 dose PO DAILY [facility] Last Admin: 05/26/17 08:48 Dose: Not Given Glucosamine Sulfate ([Cidatrine] 500 Mg) 1 dose PO DAILY [facility] Last Admin: 05/26/17 08:48 Dose: Not Given Simvastatin (Zocor) 20 mg PO HS [facility] Last Admin: 05/25/17 22:23 Dose: 20 mg Sodium Chloride (Saline Flush) 10 ml IV Q8 [facility] Last Admin: 05/26/17 14:30 Dose: 10 ml Vitamin D (Vitamin D3) 10,000 unit PO QDAY [facility] Last Admin: 05/26/17 08:47 Dose: 10,000 unit Zolpidem Tartrate (Ambien) 5 mg PO HSP PRN PRN Reason: sleep Last Admin: 05/25/17 23:51 Dose: 5 mg Medical - PN: A/P - Time Spent With Patient Total time spent is greater than 50% in coordination of care (as documented) at patient's floor/unit and/or counseling patient: - Narrative A/P Narrative: A/P Pneumonia: repeat cxr does not show same, no need for antbiotics Back pain/ Leg weakness: Clinically not weak, no gross e/o spinal cord compromise, appreciate spine surgery input. Plan for steroid inj and PT. will need snf placement, anticipate same after steroid inj CODE STATUS: Full code. His daughter, Aline, will act as his POA. DVT prophylaxis: Subcu heparin. -PT and OT evaluations. Medical - PN: Qual - VTE Deep Vein Thrombosis/Pulmonary Embolism Present on Admission: No
[2017-05-26] MEDS: SIMVASTATIN 20 MG TABLET PO SCH (20:03)
[2017-05-26] MEDS: ZOLPIDEM 5 MG TABLET PO PRN (23:52)
--- NOTE | 2017-05-27 05:42 | Consultation ---
DATE OF CONSULTATION: 05/26/2017 REASON FOR CONSULTATION: I was asked by the Hospitalist to see patient for fairly sudden onset of left leg weakness. Patient's history is approximately 1 week ago he had a bladder infection and that is when the weakness began. He was treated with antibiotics which apparently cleared the bladder infection and then more recently he stated he went outside to pee at which time he collapsed. He states he was unable to get up off the ground so he crawled to a place where he could get some help and essentially crawled into his house and got a walker and his pain started to gradually improve. His pain was mainly in his left hip at that time. Later that evening patient was walking around with a walker and pushed a button on a coffee machine and, again, noted his left leg crumped underneath him. He was caught between the counter and sink with his arm partly in the sink and he could not get to the floor easily so he somewhat hung there for a short period of time. Since that time patient has had weakness in his left leg. He initially noted significant pain in his left hip as well and he has always had pain in his left knee which was secondary to degenerative joint disease of which he states he gets some relief with injections in that knee. When patient was see in the ER his blood cell count was normal, white cell was normal and urinalysis was normal. He was admitted to [facility] with generalized weakness status post fall and left lower lobe pneumonia with history of UTI. 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 PAST SURGICAL HISTORY: Positive for aortic aneurysm repair by Dr. Eric Tejeda 10/30/2006, colonoscopy 1992, 1999 and 2016; unilateral nephrectomy of left kidney by Dr. Moe 08/29/2006. DIAGNOSTIC STUDIES: Patient has an MRI of the lumbar spine which of most note was at the L4-5 level a mild broad disc protrusion and facet arthropathy resulting in severe central canal and moderate bilateral lateral recess IV foraminal narrowing with impingement of the exiting L4 and descending L5 nerve roots which is likely contributing to patient's weakness, but cannot know this with certainty. The thing that is somewhat surprising is this sudden onset was somewhat unexpected although patient has fallen several times and, certainly, the result of that could cause increased exacerbation of symptoms. Also, at L3-4 patient has moderate central canal stenosis multifactorial, and at L2-3 grade 1 spondylolisthesis and facet arthropathy resulting in moderate central canal and mild bilateral lateral recess IV foraminal narrowing. MEDICATIONS: 1. Amlodipine 5 mg 2. Pravastatin 40 mg 3. Psyllium husk 4. Aspirin 81 mg delayed release 5. Cholecalciferol 5,000 unit 6. Glucosamine Sulfate 500 mg 7. [place] 3 fatty acids 1,000 mg 8. Vitamin A, Vitamin C, Vitamin E 9. Zolpidem 5 mg 10. Nitrofurantoin 1 mg po bid 11. Heparin 5,000 units SL q12h ALLERGIES: ATORVASTATIN PHYSICAL EXAM: CONSTITUTION: Patient is awake, alert, and appears in no acute distress. NECK: Supple. No anterior or posterior lymphadenopathy. Trachea appears midline. HENT: Unremarkable. EYES: External ocular muscles are intact. HEART: Regular rate. No ectopy. LUNGS: Clear to auscultation. No rales, rhonchi, wheezing. ABDOMEN: Soft, nontender to palpation. No organomegaly, masses, guarding or rigidity. BACK: No significant palpatory tenderness midline or paravertebral. Side bending, rotation and side bending, extension and forward-flexion did not cause pain in the seated position. I did not attempt to stand patient up. Straight leg raise appeared to be positive in the sitting and lying positions; however, it was difficult to discern as he could not completely straighten his left leg. Right was unremarkable. Thad's test was unremarkable for SI joint pain bilaterally. There was no clonus noted bilaterally. EXTREMITIES: Patient is noted to have an extremely distorted swollen right ankle which he has a hard time walking on, and this could be putting more pressure on the left leg. He also has fairly significant swelling of the left knee with crepitus and with pain at extremes of extension and flexion with extension approximately 10? to 15? short of neutral, and flexing to approximately 90?. No significant pain in the hips with internal and external rotation or flexion although there was moderate limitation. NEUROLOGIC: Patellar DTR's were equal bilaterally. Unable to elicit Achilles DTR on the left or right. Quadriceps on the left was possibly mildly weaker compared to the right. Hamstrings was difficult to discern any difference between the right or left. Ankle inversion on the left appeared possibly mildly weak, but again very minimal. Right was difficult to assess secondary to distortion of the ankle and this was also noted with eversion on the right. I did not note significant eversion on the left. Dorsiflexion and plantar flexion appeared fairly equal bilaterally. Patient did have some decreased sensation to pinprick over the dorsum of his left foot; however, this did not necessarily follow a dermatomal pattern and was more of a peripheral neuropathy-type pattern, but there was certainly loss of sensation over the dorsum of the left foot which could be L4 and/or L5 involvement. INTEGUMENT: Unremarkable. IMPRESSION: 1. Lumbar radiculopathy likely involving the L4 and/or L5 nerve root on the left. 2. Central stenosis without neurogenic claudication most significant at L4-5, but also noted at L3-4 and L2-3. 4. Degenerative joint disease of the left knee. PLAN: I do think it would be appropriate to pursue an interlaminar epidural steroid injection at the L4-5 level directed to the left and see if this would benefit patient. Patient was given risks versus benefits and wishes to proceed. We will schedule this to be done over at the [facility] tomorrow morning. We will hold patient's morning Heparin dose which he usually gets at 9 a.m., and anywhere from 8 or 9 a.m., on should be safe for us to do the epidural. When patient is taken back to the hospital he can have the subcutaneous Heparin dose at that time. I am not certain that the injection will be of benefit to him, but it is reasonable to try. What is most surprising is what seems to be the sudden onset of this weakness when it appears to be more of a chronic problem, although with the falls that could have certainly exacerbated things. The other question is whether some of this weakness in his leg is secondary to pain in the knee when bearing weight. In regards to patient's activities of daily living these have been markedly reduced secondary to this significant pain and he was hospitalized secondary to the weakness; therefore, he definitely has been impacted. He has been going through physical therapy while inpatient, and to this point has not noted significant improvement in the weakness. There is certainly some reduction in his left hip pain, but the weakness continues to remain. I do think patient meets criteria to pursue the epidural steroid injection and, therefore, we will proceed down this path. CHARMAINE:jennifer Job ID: [id number] Doc ID: [id number] Walter Gaines DO
[2017-05-27] MEDS: 0.9 % SODIUM CHLORIDE 10 ML SYRINGE IV SCH (05:43)
[2017-05-27 05:53] LABS: Basophils # (Auto) 0 K/mcL (0.0-0.3); Basophils % (Auto) 0.4 % (0.0-2.0); Eosinophils # (Auto) 0.2 K/mcL (0.0-0.7); Granulocytes % (Auto) 73.5 % (38.0-78.0); Lymphocytes # (Auto) 1.3 K/mcL (1.5-4.8); Lymphocytes % (Auto) 13.6 % (15.5-49.0); Mean Cell Volume 93.1 fL (80.0-100.0); Mean Corpuscular HGB Conc 33.3 g/dL (31.0-36.0); Monocytes % (Auto) 10.5 % (1.0-12.0); Platelet Count 205 K/mcL (140-440); RBC 4.34 M/mcL (4.50-5.90); Red Cell Distribution Width 13.8 % (11.5-14.5)
[2017-05-27 06:38] LABS: ALT/SGPT 22 U/l (0-40); Albumin 3.8 gm/dL (3.2-5.2); Albumin/Globulin Ratio 1.3 (1.0-2.3); Alkaline Phosphatase 43 U/L (39-117); Bilirubin,Direct < 0.2 mg/dL (0.0-0.3); Blood Urea Nitrogen 17 mg/dl (8-23); Gamma Glutamyl Transpeptidase 15 U/L (8-61); Magnesium 2.1 mg/dL (1.6-2.5)
[2017-05-27] MEDS: ASPIRIN 81 MG TAB.CHEW PO SCH (10:17)
[2017-05-27] MEDS: HEPARIN 5,000 UNIT/ML VIAL SQ SCH (10:17)
[2017-05-27] MEDS: amLODIPine 5 MG TABLET PO SCH (10:17)
[2017-05-27] MEDS: VITAMIN D3 5,000 UNIT CAPSULE PO SCH (10:17)
[2017-05-27] MEDS: FISH OIL 1,000 MG CAPSULE PO SCH (10:17)
[2017-05-27] MEDS: GLUCOSAMINE SULFATE 500 MG PO SCH (10:18)
[2017-05-27] MEDS: MINS PO SCH (10:18)
[2017-05-27] MEDS: BETA CAROTENE VITS C E PO SCH (10:18)
[2017-05-27] MEDS ORDERED: LIDOCAINE 2% 20 ML VIAL SQ ONE (10:27)
[2017-05-27] MEDS ORDERED: TRIAMCINOLONE ACETONIDE 40 MG/ML VIAL INTRAARTIC ONE (10:30)
[2017-05-27 13:07] LABS: Appearance,Synovial Fluid CLOUDY; Color,Synovial Fluid YELLOW; Crystals,Body Fluid NONE SEEN (NONE SEEN)
[2017-05-27 13:37] LABS: Lymphocytes,Synovial Fluid 2 %; Neutrophils,Synovial Fluid 84 % (0-25); Other Cells,Synovial Fluid 14 %
--- NOTE | 2017-05-27 14:02 | XRay Report ---
CLINICAL INFORMATION: Pain and swelling. TECHNIQUE: The procedure and risks including the possibility bleeding, infection and inadequate drainage were explained the patient. He understood and wished to proceed. With the patient in supine position on the fluoroscopy table, the skin overlying the medial parapatellar region was fluoroscopically marked prepped and locally anesthetized 1% lidocaine using a 25-gauge needle. A 20-gauge needle was then placed under fluoroscopic guidance into the central patellofemoral joint. Approximately 20 cc of slightly cloudy joint fluid was aspirated and sent for requested studies. Patient tolerated procedure well. IMPRESSION: Successful fluoroscopic guided aspiration of the patellofemoral joint yielding 20 cc of slightly cloudy joint fluid. It may represent infection or inflammation. Pathology pending Interpreted and Authenticated by: Efren Short 05/27/17
--- NOTE | 2017-05-27 14:04 | Discharge Summary ---
Medical - DS: Prov Patient information: Note initiated : 05/27/17 at 1:59 pm Service Date, if different from initiated Date: [] Patient: Antonio Chaves 86 y/o M admitted on 05/24/17 for Weakness, Low BP/ Pneumonia. Chief Complaint: [] Date of admission: 05/24/17 12:51 Discharge date: 05/27/17 Primary care physician: Efren Sim Admitting clinician: Sarah Clark Consults: 05/24/17 11:50 Consult to Physician [CONS] Stat Comment: Consulting Provider: Sarah Clark Reason For Exam: Physician to Consult 05/26/17 07:30 Consult to Physician [CONS] Routine Comment: Consulting Provider: Baron Fox Reason For Exam: Physician to Consult 05/26/17 13:21 Consult to Physician [CONS] Routine Comment: back pain. Consulting Provider: Walter Gaines Reason For Exam: Physician to Consult Discharging clinician: Ally Weller Medical - DS: Meds - Discharge Medications Prescriptions: HYDROcodone/APAP 5/325MG [[place] 5/325Mg] 1 tab PO Q4HP PRN #30 tab PRN Reason: Pain Level 3-6 Zolpidem Tartrate [Ambien] 5 mg PO HS PRN #30 tab PRN Reason: sleep Active and Home Medications: Home Medications amlodipine 5 mg tablet 5 mg PO QDAY 10/30/16 [History Confirmed 05/24/17 Last Taken 05/23/17 08:00] pravastatin 40 mg tablet 40 mg PO QHS 10/30/16 [History Confirmed 05/24/17 Last Taken 05/23/17 18:00] aspirin 81 mg tablet,delayed release 81 mg PO 3XW 12/02/16 [History Confirmed Last Taken 05/22/17 08:00] cholecalciferol (vitamin D3) 5,000 unit capsule 10,000 unit PO QDAY 12/02/16 [ History Confirmed 05/24/17 Last Taken 05/23/17 08:00] glucosamine sulfate 500 mg tablet 500 mg PO DAILY 12/02/16 [History Confirmed Last Taken 05/23/17 08:00] omega-3 fatty acids 1,000 mg capsule 1,000 mg PO QDAY 12/02/16 [History Confirmed 05/24/17 Last Taken 05/23/17 08:00] vitamin A-vitamin C-vit E-min tablet 1 tab-cap PO QDAY 12/02/16 [History Confirmed 05/24/17 Last Taken 05/23/17 08:00] zolpidem 5 mg tablet 5 mg PO HS PRN #30 tab 12/02/16 [Rx Confirmed 05/24/17 Last Taken Unknown] Nitrofurantoin Monohyd/M-Cryst [Macrobid 100 mg Capsule] 100 mg PO BID #14 cap 05/21/17 [Rx Confirmed 05/24/17 Last Taken 05/23/17 18:00] Medical - DS: Hosp Hospital course: Mr. Chaves is a 86 year old man who was in his normal state of health until May 21, when he just was not feeling well and felt weak and nearly collapsed while bowling. Came to the emergency room and was diagnosed with a urinary tract infection. He was given a prescription for Macrobid. Since then he is really not bounced back, and is just been feeling very weak, and has had several falls. He says he just feels like his legs suddenly while at work and they just buckle and he falls down. He does not seem to have any control over his legs. He initially denied that this had ever happened in the past, and then later said that he had a similar episode back in June of this year. He had a UTI at that time as well, and his symptoms resolved after that was treated. He denies any back pain or leg pain, although says at this time his left hip is quite sore from 1 of his recent falls. 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 ER evaluation showed normal white blood cell count, normal urinalysis, and generally normal labs. Chest x-ray was suggestive of possible early left lower lobe infiltrate. The patient is too weak to return home, so was admitted to observation. In the hospital, the patient was initally treated with antibiotics for pneumonia , however repeat CXR showed that the patients PNA was just a scar, pt has no resp symptoms, Antibiotics stopped. The patient had significant weakness in the left lower extremity, which he felt was giving away, did not endorse any specific pain, but did not of some back pain. MRI spine showed DJD and possible nerve impingement. Dr Fox reviewed the MRI and patient and advised spinal steroid injection which was done today by Dr Gaines. The patient also had some effusion in the left knee, which was tapped by radiology, (h/o OA and steroid inj in past, last 6 months ago) Synovial fluid analysis was neg for inflammation or crystal arthropathy. His X ray of the left leg shows old non united patellar fracture, and DJD of the knee. The patients lower extremity weakness is likely a factor from his OA, ? patellar fracture as well as spine impingement in the back. He was recommended to have aggressive PT to help with his gait and balance. He will be discharged to SNF for rehab. Discharge diagnosis: Back pain, Osteoarthritis, Weakness - Time Spent with Patient Total time spent providing and/or coordinating discharge services: Greater than 30 minutes Medical - DS: Exam - Constitutional Vitals: Vital Signs Temp Pulse Resp BP BP Pulse Ox 05/27/17 07:30 98.7 F 22 133/66 93 05/27/17 07:16 95 05/27/17 03:42 98.6 F 86 22 137/88 92 05/26/17 23:27 98.3 F 85 22 147/76 93 05/26/17 19:34 98.6 F 95 H 24 H 138/69 92 05/26/17 16:00 98.4 F 20 135/76 95 Intake and Output 05/26/17 05/27/17 05/27/17 21:59 05:59 13:59 Intake Total 1390 / 1390 975 / 975 240 / 240 Output Total 675 / 675 325 / 325 200 / 200 Balance 715 / 715 650 / 650 40 / 40 Intake: Oral 1390 / 1390 975 / 975 240 / 240 Output: Void Amount 675 / 675 325 / 325 200 / 200 Other: Meal Dinner Breakfast Percent of Meal Consumed 100% 100% Feeding Ability Independent # Voids 1 1 1 # Bowel Movements 1 1 Weight 239 lb 8 oz Additional comments: Constitutional; Afebrile, cooperative, alert, not in distress. Eyes- No icterus, , No periorbital swelling Ears- Ext ear normal, hearing normal to conversation. Neck- Midline trachea, supple Respiratory system: Air Entry equal on both sides, No crackles or wheezing, no rhonchi. CVS- Rate rhythm regular, S1,S2 heard, no gallop, no rub. Abdomen- Soft nontender abdomen, no organomegaly, no tenderness, no guarding or rigidity, CREAM DUMPER- AOOx3, moving all extremities, no gross focal deficit noted. 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 No definite acute fracture Moderate patellofemoral and severe medial tibiofemoral degenerative change MR spine IMPRESSION: Multilevel degenerative change as described Moderate distention of the urinary bladder on both today's lumbar MRI and the CT yesterday. 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 No acute abnormality Labs on day of discharge: Labs from last 24 hours 05/27/17 05/27/17 05/27/17 12:00 04:20 04:20 WBC 9.2 RBC 4.34 L Hgb 13.4 L Hct 40.4 L MCV 93.1 MCH 31.0 MCHC 33.3 RDW 13.8 Plt Count 205 MPV 7.8 Gran % 73.5 Lymph % (Auto) 13.6 L Foard % (Auto) 10.5 Eos % (Auto) 2.0 Baso % (Auto) 0.4 Gran # 6.8 Lymph # (Auto) 1.3 L Foard # (Auto) 1.0 H Eos # (Auto) 0.2 Baso # (Auto) 0 Sodium 137 Potassium 4.7 Chloride 101 Carbon Dioxide 21 L Anion Gap 15.0 BUN 17 Creatinine 0.8 GFR Calculation 80 Glucose 91 Uric Acid 6.0 Calcium 9.0 Phosphorus 2.8 Magnesium 2.1 Total Bilirubin 0.5 Direct Bilirubin < 0.2 GGT 15 AST 38 H ALT 22 Alkaline Phosphatase 43 Lactate Dehydrogenase 271 H Total Protein 6.8 Albumin 3.8 Globulin 3.0 Albumin/Globulin Ratio 1.3 Triglycerides 77 Fluid Crystals None seen Synovial Source Left knee Synovial Color Yellow Synovial Appearance Cloudy Synovial Tot Cell Ct 100 Synovial Nuc Cells 535 Synovial Neutrophils 84 H Synovial Lymphocytes 2 Synovial Other Cells 14 Synovial Diff Comment Not Reportable Preliminary micro results at discharge 05/24/17 07:58 Blood Culture - Preliminary Blood 05/24/17 08:08 Blood Culture - Preliminary Blood Medical - DS: A/P - Patient/Caregiver Discharge Instructions Activity: as per physical therapy, increase activity as tolerated Diet: Regular Diet Additional Instructions: Take antibiotics for another 5 days, Follow up with PCP in 1 week Follow up with Dr Fox in 2 weeks for follow up of back pain and left knee patella fracture/ possible need for steroid injection. GO to the ER if worsening symptoms, sudden onset weakness, fever, chest pains or any other concerning symptom. - Follow up Plan Follow up with: Efren Sim DO [Primary Care Provider] - Disposition: Xfer SNF Prognosis: Fair Rehab Potential: Fair I certify that the patient requires SNF services: Yes Overall status at discharge: patient is progressing back to baseline Medical - DS: Qual - VTE Deep Vein Thrombosis/Pulmonary Embolism Present on Admission: No
== END 2017-05-27 15:00 ==
LOC: ED 07:21 → MEDSUR 07:21
PROVIDERS: ADMIT Internal Medicine; ATTEND Internal Medicine